=== PATIENT | female | born 1965 | race Caucasian/White ===

== ENCOUNTER 2024-11-18 11:25 | Emergency (ER) | payer BC, SELFPAY ==
[2024-11-18 11:26] VITALS: BP 191/95; PULSE 140; RESP 18; TEMP 36.2; O2SAT 100
[2024-11-18 12:10] VITALS: BP 200/104
--- NOTE | 2024-11-18 12:19 | EX.ED.DYSGE1 ---
HPI <ALTHEA Tavares - Last Filed: 11/18/24 19:31> History of Present Illness Chief Complaint: Hypertension Narrative Narrative: Patient presents today due to elevated blood pressure. She was scheduled to have right cataract surgery performed today by Dr. Zelaya but her blood pressure was around 210/90 and they had to cancel the procedure. She reports that she was incredibly anxious about having the procedure performed and is still anxious that she is here in the emergency department. She reports that she does not do well in medical settings as they make her nervous. She denies having a history of hypertension. She reports a history of anxiety. She denies headache, visual changes, nausea, chest pain, shortness of breath. PFSH <ALTHEA Tavares - Last Filed: 11/18/24 19:31> PFSH Home Medications ?Medication ?Instructions ?Recorded ?Last Taken ?Type metformin 500 mg tablet 500 mg PO BID #21 tabs 11/18/24 Unknown Rx Social History Smoking Status: Never smoker ROS <ALTHEA Tavares - Last Filed: 11/18/24 19:31> ROS ED Constitutional Constitutional ED: Denies chills or fever(s) Eyes Eyes: Denies blurry vision Cardiovascular Cardiovascular: Denies chest pain Respiratory/Chest Respiratory/Chest: Denies dyspnea Gastrointestinal Gastrointestinal: Denies abdominal pain, nausea or vomiting Musculoskeletal Musculoskeletal: Denies arthralgias or myalgias Integumentary Denies rash Neurologic Neurologic: Denies headache(s) or weakness Psychiatric Psychiatric: Reports anxiety; Denies suicidal ideation or suicidal thoughts EXAM <ALTHEA Tavares - Last Filed: 11/18/24 19:31> Physical Exam Const Vital Signs: 11/18/24 11:26 11/18/24 12:10 11/18/24 14:00 Temperature 97.2 F L Temperature Source Oral Pulse Rate 140 H Respiratory Rate 18 Blood Pressure 191/95 H 200/104 H 190/96 H Blood Pressure Mean 127 136 127 Pulse Ox 100 Oxygen Delivery Method Room Air 11/18/24 14:58 11/18/24 15:06 Temperature 98 F Temperature Source Pulse Rate 89 Respiratory Rate 16 Blood Pressure 173/79 H 173/89 H Blood Pressure Mean 110 117 Pulse Ox 99 Oxygen Delivery Method Positive well nourished, well developed and no apparent distress General Appearance ED: well developed HEENT Reports normocephalic and head/scalp atraumatic Mouth ED: Yes moist mucous membranes normal Eyes PERRL and EOMs intact bilaterally Neck full ROM and supple Chest Wall inspection of chest normal Resp normal respiratory effort and clear to auscultation bilaterally Cardio regular rate and regular rhythm GI soft to palpation, non-tender, non-distended and no masses Back/Spine normal ROM and normal to inspection Extremity normal to inspection and full ROM Neuro oriented x3, CN's II-XII intact bilaterally, moves all extremities, no focal motor deficits and no sensory deficits noted Sensorium / Orientation: awake and alert Psych mental status grossly normal Mood & Affect: anxious Skin no rashes or lesions noted and no wounds <Dr. Ann Beltran DO - Last Filed: 11/20/24 06:37> Physical Exam Const Vital Signs: 11/18/24 11:26 11/18/24 12:10 11/18/24 14:00 Temperature 97.2 F L Temperature Source Oral Pulse Rate 140 H Respiratory Rate 18 Blood Pressure 191/95 H 200/104 H 190/96 H Blood Pressure Mean 127 136 127 Pulse Ox 100 Oxygen Delivery Method Room Air 11/18/24 14:58 11/18/24 15:06 Temperature 98 F Temperature Source Pulse Rate 89 Respiratory Rate 16 Blood Pressure 173/79 H 173/89 H Blood Pressure Mean 110 117 Pulse Ox 99 Oxygen Delivery Method [facility] <ALTHEA Tavares - Last Filed: 11/18/24 19:31> [facility] Narrative Medical decision making narrative: Patient presenting today due to elevated blood pressure while at her surgical appointment to have a right cataract removed. She reports feeling very anxious about having her procedure performed and now is anxious about being here in the ED. She does have a history of anxiety but is not on any medication for it. She does begin to cry several times during the exam, however she has no SI or HI. Her blood pressure here is 191/95. She is asymptomatic with this. She was given Ativan to help calm her down and reported improvement of her anxiety. Labs were obtained, no kidney dysfunction, her glucose is elevated at 313, this is a fasting sample, she denies a history of diabetes but has not had labs checked in a while because she does not have a PCP. No anion gap to suggest DKA. She does admit to drinking a lot of sugary drinks such as alcoholic beverages, juice, and pop. I will start her on metformin, I recommended she obtain a glucometer and begin checking her sugar in the mornings. She does have a blood pressure cuff at home and I recommended she begin taking her blood pressure daily and follow-up with the PCP I referred her to as she may need to be started on antihypertensives. Her blood pressure did go down to 173/89. Patient discharged home in stable condition. Lab Data Attestation: I reviewed the patient's lab results. Lab results narrative: H&H 17 and 47.5, platelet count 148, sodium 134, glucose 313 Labs: Laboratory Results - last 24 hr 11/18/24 13:55 WBC 7.1 RBC 5.48 H Hgb 17.0 H Hct 47.5 H MCV 86.7 MCH 31.0 MCHC 35.8 RDW Std Deviation 38.3 RDW Coeff of Ruddy 12.0 Plt Count 148 L MPV 11.3 Immature Gran % (Auto) 0.400 Neut % (Auto) 78.2 H Lymph % (Auto) 12.0 L Sabine % (Auto) 8.2 Eos % (Auto) 0.4 Baso % (Auto) 0.8 Absolute Neuts (auto) 5.5 Absolute Lymphs (auto) 0.85 Nucleated RBC % 0 Sodium 134 L Potassium 4.9 Chloride 98 Carbon Dioxide 27.0 Anion Gap 9 BUN 13 Creatinine 0.71 Est GFR (MDRD) Af Amer 109 Est GFR (MDRD) Non-Af 90 BUN/Creatinine Ratio 18.3 Glucose 313 H Calcium 9.8 Troponin I High Sens 18 TSH 1.010 EKG Initial EKG: Comments: 130 bpm, sinus tachycardia, no ST elevation, right bundle branch block, interpreted by attending ED physician <Dr. Ann Beltran, DO - Last Filed: 11/20/24 06:37> [facility] Narrative Medical decision making narrative: Patient presenting today due to elevated blood pressure while at her surgical appointment to have a right cataract removed. She reports feeling very anxious about having her procedure performed and now is anxious about being here in the ED. She does have a history of anxiety but is not on any medication for it. She does begin to cry several times during the exam, however she has no SI or HI. Her blood pressure here is 191/95. She is asymptomatic with this. She was given Ativan to help calm her down and reported improvement of her anxiety. Labs were obtained, no kidney dysfunction, her glucose is elevated at 313, this is a fasting sample, she denies a history of diabetes but has not had labs checked in a while because she does not have a PCP. No anion gap to suggest DKA. She does admit to drinking a lot of sugary drinks such as alcoholic beverages, juice, and pop. I will start her on metformin, I recommended she obtain a glucometer and begin checking her sugar in the mornings. She does have a blood pressure cuff at home and I recommended she begin taking her blood pressure daily and follow-up with the PCP I referred her to as she may need to be started on antihypertensives. Her blood pressure did go down to 173/89. Patient discharged home in stable condition. I have personally performed a face to face assessment of the patient and have reviewed the SOPHIA Note. I performed a substantive portion of the visit including all aspects of the following. My longoria findings include: History is patient is a 59-year-old female who reports history of anxiety and states she does not regularly see a doctor and actually avoids doctors. She is presenting today for elevated heart rate and blood pressure. Patient was supposed to have right cataract surgery done however with her vital signs they told they could not perform the procedure and sent her to the emergency room. She states that she is anxious about having the procedure and also has had recent events that have caused her increased anxiety such as her [id number] passing, her sister from cancer this fall and her daughter recently having to move after break-up. Upon arrival to the ER patient is hypertensive and tachycardic. She overall is well-appearing except she is tearful and anxious. She is not complain of any chest pain, shortness of breath or other symptoms consistent with symptomatic hypertension. Physical exam is relatively benign. Head normocephalic atraumatic. When she goes to membranes. No JVD. Lung clear to auscultation bilaterally. Heart regular rate and rhythm. She is mildly tachycardic. No peripheral edema appreciated. Abdomen soft and nontender. No pulsatile mass. She is 2+ radial and DP pulses. No focal nausea deficits. Patient is tearful but otherwise acting appropriately. No HI or SI. Patient does consent to workup looking for signs of endorgan damage associated with hypertension or other causes of her hypertension. She said to have a mild elevation of her hemoglobin (no baseline to compare to). Her creatinine is normal at 0.71. Troponin normal at 18. TSH normal at 1.01. She does have an elevated glucose of 313. With her glucose being this high and she has not been on any recent serious concern undiagnosed diabetes. Patient's blood pressure does start to go down slightly in the ER but remains elevated. Counseled patient's on the importance of close outpatient follow-up. At this time we will start the patient on metformin and have her follow-up for further blood pressure checks for acute active. Patient and spouse verbalized agreement understand this plan. Discharged home in stable condition. Given return precautions. Other additions or changes: [None] Lab Data Labs: Laboratory Results - last 24 hr 11/18/24 13:55 WBC 7.1 RBC 5.48 H Hgb 17.0 H Hct 47.5 H MCV 86.7 MCH 31.0 MCHC 35.8 RDW Std Deviation 38.3 RDW Coeff of Ruddy 12.0 Plt Count 148 L MPV 11.3 Immature Gran % (Auto) 0.400 Neut % (Auto) 78.2 H Lymph % (Auto) 12.0 L Sabine % (Auto) 8.2 Eos % (Auto) 0.4 Baso % (Auto) 0.8 Absolute Neuts (auto) 5.5 Absolute Lymphs (auto) 0.85 Nucleated RBC % 0 Sodium 134 L Potassium 4.9 Chloride 98 Carbon Dioxide 27.0 Anion Gap 9 BUN 13 Creatinine 0.71 Est GFR (MDRD) Af Amer 109 Est GFR (MDRD) Non-Af 90 BUN/Creatinine Ratio 18.3 Glucose 313 H Calcium 9.8 Troponin I High Sens 18 TSH 1.010 EKG Initial EKG: Attestation: I personally reviewed and interpreted this EKG as follows: Discharge Plan Triage Chief Complaint: Hypertension ED Midlevel Provider: Paulina Manley ED Provider: Ann Beltran Dx/Rx/DC Orders Clinical Impression: Hyperglycemia, Elevated blood pressure reading, Anxiety Instructions: ED Anxiety Reaction, ED Diabetic Hyperglycemia, ED Hypertension, To Be Confirmed Prescriptions: New metformin 500 mg tablet 500 mg PO BID Qty: 21 0RF Primary Care Provider: Care Physician,No Primary Referrals: Paul Aldrich MD [Med Staff - [employer]] - 1 Week NOT,DEFINED [Non-Staff] - Activity Restrictions/Additional Instructions: Please make an appointment with the PCP I have referred you to. Begin checking your blood pressure daily and keep record of it so that you can follow-up with the PCP about it. Start taking the metformin once daily for the first week and then you can increase it to twice a day from there on. Print Language: Malay Disposition Disposition: Home, Self Care Discharge Date/Time: 11/18/24 15:13
[2024-11-18] MEDS: LORazepam 0.5 MG Tablet PO (12:37)
[2024-11-18 14:00] VITALS: BP 190/96
[2024-11-18 14:17] LABS: Absolute Lymphocyte Count 0.85 X10^3/uL (0.83-4.51); Absolute Neutrophil Count 5.5 X10^3/uL (2.0-7.7); Basophil# 0.06 X10^3/uL; Basophil% 0.8 % (0-1); Eosinophil# 0.03 X10^3/uL; Eosinophils% 0.4 % (0-5); Hematocrit 47.5 % (37-47); Lymphocyte # 0.85 X10^3/ul (0.83-4.51); Mean Corp Hgb Conc 35.8 g/dL (32-36); Mean Corpuscular Volume 86.7 fL (81-99); Mean Platelet Vol. 11.3 fl (6.2-12.0); Monocyte# 0.58 X10^3/uL; Monocyte% 8.2 % (0-10); NRBC Flagged by Analyzer 0 % (0-5); Neutrophil # 5.54 X10^3/uL (2.7-7.7); Neutrophil % 78.2 % (47-70); Platelet Count 148 K/mm3 (150-450); RBC Distribution Width SD 38.3 fl (35.1-43.9); Red Blood Count 5.48 M/mm3 (4.2-5.4); White Blood Count 7.1 K/mm3 (4.4-11.0)
[2024-11-18 14:41] LABS: Anion Gap 9 (5-15); BUN 13 mg/dL (7-18); BUN/Creat Ratio 18.3 RATIO (10-20); Calcium,Total 9.8 mg/dL (8.5-10.1); Chloride 98 mmol/L (98-107); Creatinine, Serum 0.71 mg/dL (0.55-1.02); EST Glomerular Filtration Rate 90 mL/min (>60); Est Glom Filt Rate - Afr Amer 109 mL/min (>60); Glucose 313 mg/dL (74-106); Potassium 4.9 mmol/L (3.5-5.1); Sodium Level 134 mmol/L (136-145); Troponin-I HS 18 pg/mL (3.0-54.0)
[2024-11-18 14:58] VITALS: BP 173/79
--- NOTE | 2024-11-18 15:04 | CM.ED ---
Social Work Reason for visit: No PCP SW entered room and introduced self, role with [facility] and reason for visit. Patient at bedside and participated in conversation. Patient stated that she did not have a PCP and that the last time she tried to call a physicians office, they were not taking new patients. [facility] provider directory was given. Patient stated that she was supposed to be getting cataract surgery today but her blood pressure was too high and they sent her to the ER. When asked if patient was anxious regarding the surgery, patient stated that she was a very anxious person. Patient stated that she had never addressed her anxiety before because she did not have a PCP to talk to, when asked if patient had ever considered seeing a counselor or psychiatrist, patient stated she felt those were only for crazy people Information given regarding benefits of mental health professionals and resources offered. Patient stated she may consider it after she gets her blood pressure under control but she was not interested at this time. No further needs identified. Enid Glasgow, [employer], [employer]
[2024-11-18 15:06] VITALS: BP 173/89; PULSE 89; RESP 16; TEMP 36.6; O2SAT 99
== END 2024-11-18 15:13 | disposition home or self-care (01) ==
PROVIDERS: Physician Assistant; Emergency Provider Emergency Medicine; Visit Provider Emergency Medicine
DX: R73.9 Hyperglycemia, unspecified (principal); R03.0 Elevated blood-pressure reading, without diagnosis of hypertension; F41.9 Anxiety disorder, unspecified; I45.10 Unspecified right bundle-branch block; Z63.4 Disappearance and death of family member
CPT/HCPCS: 80048; 84443; 84484; 85025; 93005; 99283; A4216